=== PATIENT | male | born 1990 | race Caucasian/White ===

== ENCOUNTER 2017-03-12 01:10 | Emergency (ER) | payer SELFPAY ==
[~2017-03-12] VITALS: Ht 172.7 cm; Wt 68.0 kg
[2017-03-12 01:15] VITALS: BP 141/90
--- NOTE | 2017-03-12 03:27 | NUR ---
TO ER BED 3
--- NOTE | 2017-03-12 03:45 | NUR ---
27 Y/O HERE W/C/O TOOTHACHE AND SWOLLEN X 1 YEAR ON AND OFF. DENIES ANY FEVER, N/V. NO S/S OF DISTRESS NOTED. ER MADE AWARE.
--- NOTE | 2017-03-12 03:58 | NUR ---
Patient being evaluated by physician at bedside.
[2017-03-12 04:06] VITALS: BP 132/86
--- NOTE | 2017-03-12 04:06 | NUR ---
DPatient discharged with v/s stable. Written and verbal after care instructions given and explained. Patient alert, oriented and verbalized understanding of instructions. Ambulatory with steady gait. All questions addressed prior to discharge. ID band removed. Patient advised to follow up with PMD. Rx of TYLENOL WITH CODEINE AND DOXYCYCLINE given. Patient educated on indication of medication including possible reaction and side effects. Opportunity to ask questions provided and answered.
== END 2017-03-12 04:06 | disposition home or self-care (01) ==
LOC: MED 01:10
DX: L70.0 Acne vulgaris (principal); K00.6 Disturbances in tooth eruption; R03.0 Elevated blood-pressure reading, without diagnosis of hypertension
CPT/HCPCS: 99283